=== PATIENT | female | born 1995 ===

== ENCOUNTER 2018-05-14 06:34 | Emergency (ER) | payer OTHER ==
[~2018-05-14] VITALS: Ht 129.5 cm; Wt 86.2 kg
[~2018-05-14 06:34] MED LIST: NA
[2018-05-14] MEDS ORDERED: PROZAC20 MG (07:02)
[2018-05-14] MEDS ORDERED: ZANTAC150 MG PO (12:06)
[2018-05-14] MEDS ORDERED: INTESTINEX680 M1 PO (12:06)
== END 2018-05-14 12:07 | disposition home or self-care (01) ==
LOC: ER 06:34
DX: K52.89 Other specified noninfective gastroenteritis and colitis (principal)